=== PATIENT | female | born 1965 | race Caucasian/White ===

== ENCOUNTER 2020-11-05 23:12 | Emergency (ER) | payer MEDICARE ==
[~2020-11-05] VITALS: Ht 175.3 cm; Wt 81.8 kg
[2020-11-05 23:27] VITALS: Ht 175.3 cm; Wt 81.8 kg
[2020-11-05] MEDS ORDERED: OXYCONTIN10 MG PO (23:28)
[2020-11-05] MEDS ORDERED: ZANAFLEX2 M1 PO (23:28)
[2020-11-05] MEDS ORDERED: PHENERGAN25 M1 PO (23:29)
[2020-11-05] MEDS ORDERED: ADDERALL 10 MG10 MG PO (23:29)
--- NOTE | 2020-11-06 00:40 | NUR ---
PATIENT IN ER FOR NOT ABLE TO KEEP HER BALANCE, SHE IS NOT SUICIDIAL. 1-800 NUMBER GIVEN FOR FUTURE REFERNCE.
[2020-11-06 01:39] LABS: UDS - AMPHET POSITIVE QUAL (NEGATIVE); UDS - BARB NEGATIVE QUAL (NEGATIVE); UDS - BENZO POSITIVE QUAL (NEGATIVE); UDS - COCAINE POSITIVE QUAL (NEGATIVE); UDS - OPIATE POSITIVE QUAL (NEGATIVE); UDS - PCP NEGATIVE QUAL (NEGATIVE); UDS - THC NEGATIVE QUAL (NEGATIVE)
[2020-11-06 01:42] LABS: BASOPHILS 0.3 % (0-2); EOSINOPHILS 2.4 % (0-7); HEMATOCRIT 35.5 % (36.0-48.0); HEMOGLOBIN 12.1 g/dL (12-16); IMMATURE GRANULOCYTES 0.1 % (0-5); LYMPHOCYTE ABS# 3.07 10x3/uL (1.18-3.74); LYMPHOCYTES 42.6 % (15-50); MCH 28.6 pg (26.0-34.0); MCHC 34.1 g/dL (31.0-37.0); MCV 83.9 fL (80.0-100.0); MEAN PLATELET VOLUME 8.7 fL (7.4-10.4); MONOCYTES 4.4 % (2-11); NEUTROPHIL ABS# 3.62 10x3/uL (1.56-6.13); NEUTROPHILS 50.2 % (40-80); PLATELET COUNT 206 10x3/uL (130-400); RBC 4.23 10x6/uL (4.00-5.40); RDW 12.7 % (11.5-14.5); WBC 7.2 10x3/uL (4.8-10.8)
[2020-11-06 01:44] LABS: BILIRUBIN NEGATIVE (NEGATIVE); KETONE NEGATIVE (NEGATIVE); NITRITE NEGATIVE (NEGATIVE); UROBILINOGEN NORMAL mg/dL (< 2)
[2020-11-06 01:50] LABS: CALC OSMOLALITY 274 mosm/kg (275-300); CALCIUM 8.9 mg/dL (8.5-10.1); CHLORIDE - SERUM 104 mmol/L (98-107); CREATININE - SERUM 0.7 mg/dL (0.6-1.3); GLUCOSE 106 mg/dL (74-106); POTASSIUM - SERUM 3.6 mmol/L (3.5-5.1); SODIUM 138 mmol/L (136-145); UREA NITROGEN 9 mg/dL (7-18); eGFR NON AFRICAN AMERICAN > 90 mL/min (90-120)
[2020-11-06 01:56] LABS: ALBUMIN 3.6 g/dL (3.4-5.0); ALKALINE PHOSPHATASE 60 U/L (30-120); ALT (SGPT) 28 U/L (10-68); BILIRUBIN - TOTAL 0.24 mg/dL (0.2-1.3)
[2020-11-06 03:45] VITALS: BP 137/68
== END 2020-11-06 03:42 | disposition home or self-care (01) ==
LOC: D.ER 23:12
PROVIDERS: Family Medicine
DX: F19.10 Other psychoactive substance abuse, uncomplicated (principal); R53.1 Weakness